=== PATIENT | female | born 1975 | race Caucasian/White ===

== ENCOUNTER → 2021-11-18 | Outpatient (CLI) | payer BC, OTHER ==
--- NOTE | 2021-11-19 13:54 | NM ---
EXAMINATION TYPE: NM thyroid image w uptake DATE OF EXAM: 11/19/2021 COMPARISON: NONE HISTORY: E05.91 THYROTOXICOSIS TECHNIQUE: Thyroid iodine uptake is calculated and images performed after the oral administration of 358 uCi 1-123 Capsule. FINDINGS: There is normal distribution of activity throughout the gland. The 4 hour iodine uptake is calculated at 27.9% (normal range 8-14%). The 24-hour iodine uptake is calculated at 63.2% (normal r rosa 15-35%). Thyroid scintigraphy demonstrates homogeneous distribution radiotracer throughout both thyroid lobes and thyroid isthmus. No evidence for hot or cold nodule. IMPRESSION: Elevated 4 and 24-hour uptake compatible with hypertrapping state.
== END | disposition home or self-care (01) ==
LOC: RADNMMAIN 08:39
PROVIDERS: ATTEND Internal Medicine Endocrinology, Diabetes & Metabolism
DX: E05.91 Thyrotoxicosis, unspecified with thyrotoxic crisis or storm (principal)
CPT/HCPCS: 78014; A9516

== ENCOUNTER → 2023-01-14 | Outpatient (CLI) | payer OTHER ==
--- NOTE | 2023-01-14 13:30 | XR ---
EXAMINATION TYPE: XR cervical spine comp DATE OF EXAM: 01/14/2023 COMPARISON: None HISTORY: 47-year-old female S43.91XD Sprain Right shoulder M54.2 Cervicalgia. TECHNIQUE: 5 views FINDINGS: No predental space widening or prevertebral soft tissue swelling. Straightening of the normal cervica l lordosis. Alignment is maintained. No significant bony neuroforaminal narrowing on either side. Nor mal odontoid view. IMPRESSION: Straightening of the normal cervical lordosis could be positional or due to muscle spasm. Otherwise, no radiographic abnormality seen.
--- NOTE | 2023-01-14 13:33 | XR ---
EXAMINATION TYPE: XR thoracic spine complete DATE OF EXAM: 01/14/2023 CLINICAL HISTORY: pain TECHNIQUE: Frontal, lateral, and swimmer's view of thoracic spine are obtained. COMPARISON: None. FINDINGS: Thoracic spine show satisfactory alignment without evidence of acute fracture or dislocatio n. Vertebral body heights are preserved. Disc spaces are well preserved. Visualized ribs are unrem arkable. IMPRESSION: No acute fracture or dislocation is seen in the thoracic spine. ICD 10 NO FRACTURE, INIT IAL EVALUATION
== END | disposition home or self-care (01) ==
LOC: RADXRMAIN 12:18
PROVIDERS: ATTEND Emergency Medicine
DX: S43.91XD Sprain of unspecified parts of right shoulder girdle, subsequent encounter (principal); M54.2 Cervicalgia; R20.9 Unspecified disturbances of skin sensation; X58.XXXD Exposure to other specified factors, subsequent encounter
CPT/HCPCS: 72050; 72072

== ENCOUNTER → 2023-02-08 | Outpatient (CLI) | payer OTHER ==
--- NOTE | 2023-02-08 14:15 | MR ---
EXAMINATION TYPE: MR cervical spine wo con DATE OF EXAM: 02/08/2023 COMPARISON: Radiograph 01/21/2023 HISTORY: 47-year-old female M54.2, Neck pain, headaches, RUE radiculopathy. TECHNIQUE: Multiplanar, multisequence images of the cervical spine were acquired without contrast. FINDINGS: No craniocervical junction abnormality, predental space widening, or prevertebral soft tissue swellin g. Straightening of the normal cervical lordosis but with preserved alignment. No suspicious bone marrow placement. No large focal disc herniation or significant spinal canal stenosis. There is variable mild intervertebral disc desiccation, particularly at C5-C6 where there is also mil d disc space narrowing and disc bulging. Disc bulge impresses on to the ventral thecal sac minimally narrowing the spinal canal. Mild ligamentum flavum thickening and minimal disc bulge also present at C6-C7 impressing on to the t hecal sac. Some uncovertebral joint and facet spurring at C5-C6 mildly narrows the left neuroforamen. No prevertebral or paravertebral soft tissue pathology. Normal course, caliber, and signal intensity of the cervical spinal cord. IMPRESSION: 1. Mild degenerative disc disease particularly at C5-C6 and C6/C7. Some ligamentum flavum thickening and disc bulge here mildly impresses on 2 the thecal sac but does not contribute to any significant s vane canal stenosis. 2. Some facet and uncovertebral joint arthropathy at C5-C6 mildly narrows the left C5-C6 neuroforamen .
== END | disposition home or self-care (01) ==
LOC: RADMRIMAIN 13:00
PROVIDERS: ATTEND Orthopaedic Surgery
DX: M50.122 Cervical disc disorder at C5-C6 level with radiculopathy (principal); M47.22 Other spondylosis with radiculopathy, cervical region
CPT/HCPCS: 72141

== ENCOUNTER → 2023-04-20 | Outpatient (CLI) | payer BC, OTHER ==
[2023-04-20 12:58] VITALS: BP 126/90; PULSE 78; RESP 15; TEMP 97.3
--- NOTE | 2023-04-20 14:35 | P.PAINPG ---
PQRS Measure Charge Sheet Comment: HISTORY OF PRESENT ILLNESS: A 48 yr old female w case worker at [facility] as a referral from [facility] presents today w severe and chronic neck pain x 6 mo secondary to DDD, spondylosis and facet arthropathy without myelopathy for evaluation. Pt states pain level is provoked at 7 /10 in intensity, constant, localized in the R lower cervical spine, predominantly axial, achy in character w occasional shooting pain towards the RUE and fingers. Pain is provoked by rotation. Pain is alleviated by PT x 4 wks which ended in Jan 2023, heat, medicatoins (Tyl, Ibu), repositioning and rest. Cervical disability score at 22. PMH: OA, MDD PSH: Tubal Ligation (2002) SH: Hx of tobacco use, Rare ETOH use, No illicit drug use FH: Fa- Asthma All: See list Meds: See list REVIEW OF ORGAN SYSTEMS: CONSTITUTIONAL: No fevers or chills. No recent weight loss. NEUROLOGICAL: + numbness and tingling along the distal extremities. No seizure disorders or headaches. MUSCULOSKELETAL: + pain PSYCHIATRIC: Denies current depression or suicidal thoughts. Physical Examinations : Constitutional : Cooperative , not in acute distress . Neurologic : Cranial nerve II to XII intact. No focal neurological deficits. Psychiatric : alert & oriented x 3. Matching mood & appropriate affect. Judgment & insight intact. Musculoskeletal : Cervical Spine Motor strength in the deltoid and biceps: Normal right side. Normal Left side Motor strength biceps and the wrist extensors: Normal right side . Normal left side Motor strength in the triceps muscle: Normal right side. Normal left side Deep tendon reflexes: Normal at the biceps. Normal at Brachioradialis. Normal at triceps Vertebral body tenderness to deep palpation over C6 Cervical facet loading test: positive bilaterally Spurling test: positive R> L C6-C7 Neck distraction test: positive bilaterally Brooke sign: positive bilaterally Lumbar spine Motor strength lower extremities ,thigh and legs 5/5 Right side , 5/5 Left side Deep tendon reflexes : Normal Knee Jerk. Normal Ankle Jerk Vertebral body tenderness over Araiza Test positive Lumbar facet Loading Test: positive Right / positive Left Range of motion of the lumbar spine Flexion 30 degrees, extension 10 degrees Straight Leg Raise test: Left/ Right positive at degrees Bernice test: positive right / positive left. Severe tenderness over the Sacroiliac joint on the Right / Left sides Gaenslen test: positive bilaterally Seated flexion test: positive bilaterally. Sacral spine : Severe tenderness over the Sacroiliac joint: right side / left side Range of motion: Flexion of the lumbar spine <60 degrees Range of motion: Extension of the lumbar spine <20 degrees Gaenslen's Test positive Bernice test: positive right side / left side Thigh Thrust Test Sacral Thrust Test Imaging: MRI noncontrast of the cervical spine from 02/08/23 reviewed Assessment/ Plan : Cervical DDD Recommendation of REGAN C6-C7 #1. May need a series of injections for optimal pain relief. Risks, benefits of procedure discussed and patient verbalized understanding. Admits to anti- coagulant use or medical history of diabetes. Protocol for discontinuation/ continuation of medications greer procedure discussed. All questions answered. I have spent greater than 30 minutes on patient care today. Dr Olmos was available by phone for the evaluation of this patient. The time was used to review the medical records including relevant urine studies and Prescription history (MAPs), review of the available imaging, evaluation and examination of the patient, coordination of care with the medical staff and if applicable referring physicians, as well as creation of the medical record Controlled Substance Measures - Controlled Substance Measures Is patient prescribed a controlled substance at discharge?: No
== END ==
LOC: PNWHC3 11:52
PROVIDERS: ATTEND Specialist
DX: M50.123 Cervical disc disorder at C6-C7 level with radiculopathy (principal); M47.22 Other spondylosis with radiculopathy, cervical region; R53.1 Weakness; M19.90 Unspecified osteoarthritis, unspecified site; F32.9 Major depressive disorder, single episode, unspecified; Z72.0 Tobacco use
CPT/HCPCS: 99211

== ENCOUNTER 2023-05-03 12:06 | Day surgery (SDC) | payer BC, OTHER ==
[~2023-05-03 12:06] MED LIST: LACTATED RINGERS 1,000 ML IV SCH
[2023-05-03 13:08] VITALS: RESP 16; TEMP 97.7
[2023-05-03] MEDS ORDERED: IOPAMIDOL M200 10 ML VIAL ONE (13:18)
[2023-05-03] MEDS ORDERED: DEXAMETHASONE SOD PHOSPHATE 10 MG/ML 1 ML VIAL ONE (13:18)
--- NOTE | 2023-05-03 13:26 | P.PCN ---
Date of Procedure: 05/03/23 Procedure(s) Performed: . PROCEDURE 1. Cervical epidural steroid injection under fluoroscopic guidance, C6-7 (fluoroscopy images available in the radiology department ) 2. Cervical epidurogram. PREOPERATIVE DIAGNOSIS: 1- Cervical Degenerative Disc Diseases 2- Cervical radiculopathy., 3-cervical spondylosis with cervical Facet arthropathy without myelopathy. POSTOPERATIVE DIAGNOSIS: : 1- Cervical Degenerative Disc Diseases , 2- Cervical radiculopathy. 3-,cervical spondylosis with cervical Facet arthropathy without myelopathy. ANESTHESIA: Local anesthesia with lidocaine 1% 3 ml only EBL 0 PROCEDURE INDICATION: The patient with neck pain and radiculitis unresponsive to conservative treatment consents for procedure. PROCEDURE DESCRIPTION / TECHNIQUE: The patient was seen and identified in the preoperative area. Risks, benefits, complications, including but not limited to infections ,bleeding , allergic reactions to the medications ,and not complete pain releife, and alternatives were discussed with the patient, the patient agreed to proceed with the procedure and signed the consent. Patient was taken to the OR and time out was completed. The patient was placed in the prone position on the procedure table. A pillow was placed under the patients chest to increase the cervical interlaminar space. The cervical area was prepped and draped in the usual sterile fashion. Vital signs were closely monitored during the procedure. Using anterior-posterior fluoroscopy, the C6-7 ( R paramedial ) interlaminar space was identified and the skin over this site was marked and then infiltrated with 1% lidocaine subcutaneously. Subsequently, a 20-gauge 3-1/2-inch Tuohy epidural needle was inserted and advanced toward the epidural space by means of the ``hanging-drop technique and guided by AP and lateral fluoroscopy. The correct needle position in the epidural space was verified with the injection of 2 mL of the water soluble contrast dye [id number] and observing an excellent epidurogram with the epidural spread of the dye, after negative aspiration for blood and CSF and in the absence of paresthesias. then, mixture containing 20 mg Dexamethasone and 2 ml of preservative-free normal saline injected and a washout of epidurogram was seen. Needle was withdrawn intact, skin was cleansed, and bandages were applied. Complications= none. Disposition= patient was placed in supine position and transferred to the recovery room area in stable condition and there was no evidence of upper or lower extremity motor or sensory deficit after the procedure patient was discharged from recovery room after discharge criteria met and home discharge instructions was given by the staff and patient will follow with the pain clinic in 2-4 weeks
[2023-05-03] MEDS ORDERED: IV FLUID CONTINUATION 1,000 ML IV ONE (13:36)
--- NOTE | 2023-05-03 13:57 | FL ---
EXAMINATION TYPE: FL guided pain mgmt statistic DATE OF EXAM: 05/03/2023 HISTORY: REGAN 4 SEC FLUORO, .[id number] mGym2
[2023-05-03 14:05] VITALS: BP 116/78; PULSE 75
== END 2023-05-03 14:10 | disposition home or self-care (01) ==
LOC: ORPAIN 12:06
PROVIDERS: ATTEND Specialist
DX: M50.10 Cervical disc disorder with radiculopathy, unspecified cervical region (principal); M47.22 Other spondylosis with radiculopathy, cervical region
CPT/HCPCS: 62321; J1100; Q9966

== ENCOUNTER → 2023-06-02 | Outpatient (CLI) | payer BC, OTHER ==
--- NOTE | 2023-06-02 14:21 | P.PAINPG ---
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 Pt states she experienced 80 % pain relief x 2 wks s/p procedure. Pt states pain level is provoked at 7 /10 in intensity, constant, localized in the R lower cervical spine, predominantly axial, achy in character w occasional shooting pain towards the RUE and fingers. Pain is provoked by rotation. Pain is alleviated by PT x 4 wks which ended in Jan 2023, heat, medications, repositioning and rest. Cervical disability score at 21. Interventional procedures include REGAN C6-C7 x1 Medications include Tyl, Ibu REVIEW OF ORGAN SYSTEMS: CONSTITUTIONAL: No fevers or chills. No recent weight loss. NEUROLOGICAL: + numbness and tingling along the distal extremities. No seizure disorders or headaches. MUSCULOSKELETAL: + pain PSYCHIATRIC: Denies current depression or suicidal thoughts. Physical Examinations : Constitutional : Cooperative , not in acute distress . Neurologic : Cranial nerve II to XII intact. No focal neurological deficits. Psychiatric : alert & oriented x 3. Matching mood & appropriate affect. Judgment & insight intact. Musculoskeletal : Cervical Spine Motor strength in the deltoid and biceps: Normal right side. Normal Left side Motor strength biceps and the wrist extensors: Normal right side . Normal left side Motor strength in the triceps muscle: Normal right side. Normal left side Deep tendon reflexes: Normal at the biceps. Normal at Brachioradialis. Normal at triceps Vertebral body tenderness to deep palpation over C6 Cervical facet loading test: positive bilaterally Spurling test: positive R C6-C7 Neck distraction test: positive bilaterally Brooke sign: positive bilaterally Lumbar spine Motor strength lower extremities ,thigh and legs 5/5 Right side , 5/5 Left side Deep tendon reflexes : Normal Knee Jerk. Normal Ankle Jerk Vertebral body tenderness over Araiza Test positive Lumbar facet Loading Test: positive Right / positive Left Range of motion of the lumbar spine Flexion 30 degrees, extension 10 degrees Straight Leg Raise test: Left/ Right positive at degrees Bernice test: positive right / positive left. Severe tenderness over the Sacroiliac joint on the Right / Left sides Gaenslen test: positive bilaterally Seated flexion test: positive leah aterally. Sacral spine : Severe tenderness over the Sacroiliac joint: right side / left side Range of motion: Flexion of the lumbar spine <60 degrees Range of motion: Extension of the lumbar spine <20 degrees Gaenslen's Test positive Bernice test: positive right side / left side Thigh Thrust Test Sacral Thrust Test Imaging: MRI noncontrast of the cervical spine from 02/08/23 reviewed Assessment/ Plan : Cervical DDD Recommendation of R paramedian SANTOSH C6-C7 #2. May need a series of injections for optimal pain relief. Risks, benefits of procedure discussed and patient verbalized understanding. Admits to anti- coagulant use or medical history of diabetes. Protocol for discontinuation/ continuation of medications greer procedure discussed. All questions answered. I have spent greater than 30 minutes on patient care today. Dr Olmos was available by phone for the evaluation of this patient. The time was used to review the medical records including relevant urine studies and Prescription history (MAPs), review of the available imaging, evaluation and examination of the patient, coordination of care with the medical staff and if applicable referring physicians, as well as creation of the medical record PQRS Narrative: Hx Alcohol Use (MH) No Home Medications: Ambulatory Orders Acetaminophen Tab [Tylenol] 650 mg PO Q6H PRN 04/29/23 Ibuprofen [Motrin Ib] 400 mg PO Q6H PRN 04/29/23 traMADol HCL 50 mg PO Q6H PRN 3 Days #12 tab 06/02/23 Controlled Substance Measures - Controlled Substance Measures Is patient prescribed a controlled substance at discharge?: Yes When asked, does pt state using other controlled substances?: No If prescribed controlled substance>3 days was MAPS reviewed?: Prescribed <3 Days
[2023-06-02 14:25] VITALS: BP 135/85; PULSE 90; RESP 16; TEMP 98.6
== END ==
LOC: PNWHC3 13:47
PROVIDERS: ATTEND Specialist
DX: M50.323 Other cervical disc degeneration at C6-C7 level (principal)
CPT/HCPCS: 99211

== ENCOUNTER 2023-06-30 13:13 | Day surgery (SDC) | payer OTHER ==
[2023-06-30 14:15] VITALS: TEMP 98.3
[2023-06-30] MEDS ORDERED: DEXAMETHASONE SOD PHOSPHATE 10 MG/ML 1 ML VIAL ONE (14:37)
[2023-06-30] MEDS ORDERED: IOPAMIDOL M200 10 ML VIAL ONE (14:37)
--- NOTE | 2023-06-30 14:43 | P.PCN ---
Date of Procedure: 06/30/23 Procedure(s) Performed: PROCEDURE 1. Cervical epidural steroid injection under fluoroscopic guidance, C6-7 (fluoroscopy images available in the radiology department ) 2. Cervical epidurogram. PREOPERATIVE DIAGNOSIS: 1- Cervical Degenerative Disc Diseases 2- Cervical radiculopathy., 3-cervical spondylosis with cervical Facet arthropathy without myelopathy. POSTOPERATIVE DIAGNOSIS: : 1- Cervical Degenerative Disc Diseases , 2- Cervical radiculopathy. 3-,cervical spondylosis with cervical Facet arthropathy without myelopathy. ANESTHESIA: Local anesthesia with lidocaine 1% 3 ml only EBL 0 PROCEDURE INDICATION: The patient with neck pain and radiculitis unresponsive to conservative treatment consents for procedure. PROCEDURE DESCRIPTION / TECHNIQUE: The patient was seen and identified in the preoperative area. Risks, benefits, complications, including but not limited to infections ,bleeding , allergic reactions to the medications ,and not complete pain releife, and alternatives were discussed with the patient, the patient agreed to proceed with the procedure and signed the consent. Patient was taken to the OR and time out was completed. The patient was placed in the prone position on the procedure table. A pillow was placed under the patients chest to increase the cervical interlaminar space. The cervical area was prepped and draped in the usual sterile fashion. Vital signs were closely monitored during the procedure. Using anterior-posterior fluoroscopy, the C6-7 ( R paramedial ) interlaminar space was identified and the skin over this site was marked and then infiltrated with 1% lidocaine subcutaneously. Subsequently, a 20-gauge 3-1/2-inch Tuohy epidural needle was inserted and advanced toward the epidural space by means of the ``hanging-drop technique and guided by AP and lateral fluoroscopy. The correct needle position in the epidural space was verified with the injection of 2 mL of the water soluble contrast dye [id number]-200 and observing an excellent epidurogram with the epidural spread of the dye, after negative aspiration for blood and CSF and in the absence of paresthesias. then, mixture containing 20 mg Dexamethasone and 2 ml of preservative-free normal saline injected and a washout of epidurogram was seen. Needle was withdrawn intact, skin was cleansed, and bandages were applied. Complications= none. Disposition= patient was placed in supine position and transferred to the recovery room area in stable condition and there was no evidence of upper or lower extremity motor or sensory deficit after the procedure patient was discharged from recovery room after discharge criteria met and home discharge instructions was given by the staff and patient will follow with the pain clinic in 2-4 weeks
[2023-06-30 14:53] VITALS: RESP 18
[2023-06-30 15:30] VITALS: BP 124/72; PULSE 74
--- NOTE | 2023-06-30 20:22 | FL ---
Fluoroscopy INDICATION: Pain FINDINGS: Fluoroscopy time: 3.2 seconds. Total dose area product (DAP) in uGy*m?, mGy*cm? (or similar): 0.47515 Images obtained: 3. IMPRESSION: 1. Documentation of fluoroscopy.
== END 2023-06-30 15:15 | disposition home or self-care (01) ==
LOC: ORPAIN 13:13
PROVIDERS: ATTEND Specialist
DX: M50.123 Cervical disc disorder at C6-C7 level with radiculopathy (principal); M47.22 Other spondylosis with radiculopathy, cervical region
CPT/HCPCS: 62321; J1100; Q9966

== ENCOUNTER → 2023-10-11 | Outpatient (CLI) | payer OTHER ==
[2023-10-11 19:26] LABS: INR 0.96 sec (0.93-1.11); Prothrombin Time 10.4 sec (9.9-11.9)
[2023-10-11 20:40] LABS: ALT 20 U/L (8-44); AST 20 U/L (13-35); Albumin 4.8 g/dL (3.8-4.9); Albumin/Globulin Ratio 2.09 Ratio (1.60-3.17); Alkaline Phosphatase 61 U/L (41-126); BUN/Creat Ratio 10.67 Ratio (12.00-20.00); Blood Urea Nitrogen 9.6 mg/dL (9.0-27.0); Calcium 9.8 mg/dL (8.7-10.3); Carbon Dioxide 26.8 mmol/L (21.6-31.8); Chloride 103 mmol/L (96-109); Globulin 2.3 g/dL (1.6-3.3); Glucose 82 mg/dL (70-110); Potassium 4.1 mmol/L (3.5-5.5); Sodium 140 mmol/L (135-145); Total Bilirubin 0.8 mg/dL (0.3-1.2); Total Protein 7.1 g/dL (6.2-8.2)
[2023-10-11 21:10] LABS: HGB 12.3 g/dL (12.0-15.0); MCH 30.4 pg (27.0-32.0); MCHC 32.4 g/dL (32.0-37.0); MCV 94.1 FL (80.0-97.0); Mean Platelet Volume 10.2 FL (9.5-12.2); NRBC Per 100 WBC 0 X 10*3/uL (0.00-0.01); Platelet Count 234 X 10*3/uL (140-440); RBC 4.04 X 10*6/uL (4.10-5.20); WBC 4.49 X 10*3/uL (4.50-10.00)
== END | disposition home or self-care (01) ==
LOC: LABWHC1 13:54
PROVIDERS: ATTEND Orthopaedic Surgery
DX: M50.10 Cervical disc disorder with radiculopathy, unspecified cervical region (principal); R94.31 Abnormal electrocardiogram [ECG] [EKG]
CPT/HCPCS: 36415; 80053; 82306; 85027; 85610; 93005

== ENCOUNTER → 2023-10-26 | Outpatient (CLI) | payer OTHER | END | disposition home or self-care (01) | LOC: LABPAT 14:22 | PROVIDERS: ATTEND Orthopaedic Surgery | DX: Z01.812 Encounter for preprocedural laboratory examination (principal); M50.10 Cervical disc disorder with radiculopathy, unspecified cervical region; Z22.322 Carrier or suspected carrier of Methicillin resistant Staphylococcus aureus | CPT/HCPCS: 86850; 86900; 86901; 87070 ==

== ENCOUNTER 2023-11-01 09:39 | Day surgery (SDC) | payer OTHER ==
--- NOTE | 2023-10-31 17:22 | P.HPOR ---
History of Present Illness H&P Date: 10/26/23 .D:Date: 10/26/23 : 01:46pm .T:Title: [facility] [place] Age: 48 year Height: 5'6" Weight: 118 lbs BMI: 19.05 kg/m2 Occupation: Factory VAS: 6 IMPRESSION: It was my pleasure to have seen and examined Navya. I reviewed the patient's clinical syndrome, physical findings, and imaging studies during the appointment today. It is my impression that the patient has a diagnosis of. 1. C5-6 herniated nucleus pulposus 2. Bilateral upper extremity radiculopathy 3. Bilateral upper extremity weakness 4. Cervicalgia Spine Surgery Risk Review Ms. Monroy is presenting for evaluation of neck and bilateral upper extremity pain, bilateral upper extremity numbness, tingling, and weakness. It was my pleasure to have seen and examined Ms. Monroy. In our visit today we have had a chance to go over subjective complaints, physical examination findings and treatments including the natural course history without intervention and various interventional options. The patients imaging demonstrates: XRay Cervical multiview (Lateral, Flexion, Extension, AP, Oblique) 6 views taken at [facility] [place] on 03/02/23 of Cervical Spine: - Re-reviewed with the patient today. Mild spondylitic and degenerative changes with straightening of the normal lordosis. Vertebral body heights are preserved. Diminished disc height at C5- C6, no foraminal stenosis. No acute osseous abnormalities. MRI scancompleted [facility] from02/08/2023 of Cervical Spine: - Re-reviewed with the patient today. 1. Mild degenerative disc disease particularly at C5-C6 and C6/C7. Some ligamentum flavum thickening and disc bulge here mildly impresses on 2 the thecal sac but does not contribute to any significant spinal canal stenosis. 2. Some facet and uncovertebral joint arthropathy at C5-C6 mildly narrows the left C5-C6 neuroforamen. On physical exam, Ms. Monroy demonstrates: Ongoing posterior neck pain that radiates down into the bilateral lower extremities. The patient's pain has been ongoing since 12/07/2022 after a work related injury occured. She denies any significant neck or arm pain prior to the work injury. She notes her arm pain is associated with numbness and tingling bilaterally. She notes progressive right upper extremity weakness. She notes decreased hand dexterity bilaterally. She states her current symptoms worsen after all activity, which makes it very difficult for her to complete many of her regular activities of daily living. I have explained to the patient that as their condition progresses it will cause further neurological deficits and eventual paralysis. Based on the patients imaging, physical exam, and the rapid progression and disabling nature of their symptoms, at this time I recommend surgery in the form of a: C5-6 total disc replacement. I discussed the risk and benefits of this procedure at length with Ms. Monroy. The patient agreed to considered pursuing the procedure abovementioned. Prior to surgery, she should follow up with her PCP (Cardio, ID, IM etc) for clearance. Questions were invited and answered, and the patient wishes to proceed as outlined below. Currently, I am recommendin.C5-6 total disc replacement 2.Review of surgical risks and benefits as well as an educational packet on the proposed surgical procedure. Risks: All surgical procedures come with inherent risks, including those related to positioning, anesthesia, intraoperative findings, and postoperative complications. It is important to understand that surgery does not come with any guarantee of a successful outcome as complications and adverse events are always possible. The patient was given a handout in office today discussing the surgical procedure and risks associated with the intervention, both of which were discussed with the patient. These risks include but are not limited to the following: * Experiencing same, different or even worse symptoms in back, neck, arms, or legs compared to before surgery. Requiring further surgery or other forms of treatment presently or at some time in the future at same or other levels of the intended spine surgery. On an extreme but fortunately relatively rare basis severe complication such as blindness, stroke, heart attack, temporary and/or permanent nerve injury, paralysis, coma, or may occur, sometimes without known explanation. Surgical complications may include but are not limited to risk of infection, fluid accumulation in the surgical dissection site, including a seroma or hematoma, that requires additional surgery, wound drainage, bleeding, new numbness or weakness, vision changes/loss, spinal fluid leakage, non-healing and/or infected incision, headaches, difficulty or inability to swallow, hoarseness, hemopneumothorax, pneumothorax, impotence, retrograde ejaculation, vaginal dryness; injury to nerves, spinal cord, blood vessels, lymphatics or other vital organs (i.e., bowel injury, injury to the great vessels); heterotopic bone formation; complications related to the hardware such as screws, rods, cages including misplaced hardware, device failure, instrumentation at the wrong spine level, hardware fracture/breakage, or hardware loosening; vertebral failure of the spinal column above or below the newly placed hardware; retained surgical instrumentations or devices and the need for further surgery. * Medical risks of the planned spine surgery include but are not limited to generalized Infections to the whole body or local areas outside of the surgical site (sepsis), heart attack, bleeding, anaphylaxis, meningitis, seizure, epilepsy, hearing loss, burn grant, laceration of the head or other areas of the body, bruising, hypersensitivity of the skin, bladder over distension; allergic reaction; shoulder injury related to positioning; fat, blood and air clots to other areas of the body like heart, lungs, brain; failure of internal organs such as lungs, kidneys, liver and excessive bleeding. If blood transfusions are necessary, note that transfusions may cause intolerance reactions such as anaphylaxis or other complex reactions. Despite best efforts, the results of spine surgery might not heal in terms of bone, soft tissues such as skin, fascia, ligaments, and joints. Additionally, in order to achieve best possible results, spine surgery may be carried out beyond the initially planned levels and involve decompression, fusion including insertion of hardware at levels other than the original intended area of surgical interest change some portions of the procedure in order to ensure the best possible outcomes. With spine surgery and spinal fusion, there are different off label uses of instrumentation (devices, implants and hardware) as well as biological substances (bone morphogenic proteins, demineralized bone matrix) as well as using extra bone from allograft sources (i.e. cadaver bone) or autograft (iliac crest bone, ribs, or the spine itself). The patient has been given information about these practices and their inherent risks and benefits. [facility] is an educational center that serves as a training facility for neurosurgical and orthopedic [employer] and Nursing students. Physician assistants are medically trained surgical providers who function in the outpatient, inpatient, and operating room setting under the direct supervision of the attending surgeon. [facility] has multiple operating rooms with single and overlapping rooms running daily. They currently function under the required guidelines as produced by the [facility] Finance Committee with regards to the overlapping rooms and will continue to comply with changes to this policy as they occur. The requirements include and are complied with as follows: (1) the critical portions of the overlapping rooms will not occur at the same time, (2) the attending physician will be physically present during the critical portions of the procedure and immediately available during the entire case, and (3) a back-up attending is designated should the primary attending not be immediately available. The patient has had a chance to review all the listed information, has been given print outs detailing this information, and has had all his/her questions answered to their satisfaction. It was my pleasure to have seen and examined Ms. Monroy. In our visit today we have had a chance to go over my understanding of our patient's current cond ition, the natural course history without intervention and various interventional options. Questions were invited and answered, and the patient wishes to proceed as outlined above. I have seen and examined the patient for 25 minutes and we have spent more than 50% of the time in repeat and detailed counseling about the patient's condition, its natural course history with out and as much as can be predicted with surgery and re-review of various surgical treatment options. In conclusion, Ms. Monroy requested we proceed with the above suggested surgery and are willing to accept risks and limitations of the suggested surgery as nature of the disease process and our best attempts at treatment for the condition. Thank you again for allowing us to be part of your patient's care. Please don't hesitate to contact me if you have any further questions. Signed and authenticated by: [employer] P:\\\\ppart\\\\Files\\\\[id number]\\\\LEV [id number]\\\\[id number]\\\\[id number]\\\\[id number]\\\\[id number]\\\\[id number] \\d Jona Ow[facility] [address], Dominick [address] [place] [id number] FOLLOW UP: Post Procedure PATIENT EDUCATION: Medications Reviewed: YES In our visit today Ms. Monroy and I have had a chance to go over my understanding of the patient's current condition, the natural course history without intervention and various interventional options. Questions were invited and answered, and the patient wishes to proceed as outlined above. I will be sure to keep you updated after Ms. Monroy returns here for further follow-up. Thank you again for your referral. Please do not hesitate to contact me if you have any further questions. Signed and authenticated by: Jona Galvez [facility] [address] [address] . This message is confidential, intended only for the named recipient(s) and may contain information that is privileged or exempt from disclosure under applicable law. If you are not the intended recipient(s), you are notified that the dissemination, distribution or copying of this information is prohibited. If you received this message in error, please notify the sender then delete this message. Past Medical History Additional Past Medical History / Comment(s): kidney stones, neck/shoulder/Rt. arm pain from work injury History of Any Multi-Drug Resistant Organisms: None Reported Past Surgical History: Tubal Ligation Additional Past Surgical History / Comment(s): lithotripsy Past Anesthesia/Blood Transfusion Reactions: No Reported Reaction Smoking Status: Former smoker - Past Family History Father Family Medical History: Asthma Medications and Allergies Home Medications Medication Instructions Recorded Confirmed Type Acetaminophen Tab [Tylenol] 650 mg PO Q6H PRN 04/29/23 10/28/23 History Ibuprofen [Motrin Ib] 400 mg PO Q6H PRN 04/29/23 10/28/23 History Gabapentin [Neurontin] 300 mg PO TID 10/28/23 10/28/23 History Allergies Allergy/AdvReac Type Severity Reaction Status Date / Time No Known Allergies Allergy Verified 10/28/23 09:34 Physical Examination Osteopathic Statement: *. No significant issues noted on an osteopathic structural exam other than those noted in the History and Physical/Consult. Assessment and Plan (1) Herniated nucleus pulposus, C5-6 Status: Acute Code(s): M50.222 - OTHER CERVICAL DISC DISPLACEMENT AT C5-C6 LEVEL SNOMED Code(s): 32375400 (2) Cervical stenosis of spine Status: Acute Code(s): M48.02 - SPINAL STENOSIS, CERVICAL REGION SNOMED Code(s): 42654839 (3) Degenerative cervical disc Status: Acute Code(s): M50.30 - OTHER CERVICAL DISC DEGENERATION, UNSP CERVICAL REGION SNOMED Code(s): 30688142 (4) Radiculopathy affecting upper extremity Status: Acute Code(s): M54.10 - RADICULOPATHY, SITE UNSPECIFIED SNOMED Code(s): 44719390
[~2023-11-01 09:39] MED LIST changes: -LACTATED RINGERS 1,000 ML IV SCH; +TRANEXAMIC 1,000 MG/100ML-NACL 1,000 MG in SALINE 1 100ML.BAG IVPB PRN
[2023-11-01 10:11] VITALS: TEMP 97.6
[2023-11-01] MEDS: IV FLUID CONTINUATION 1,000 ML IV ONE ×4 (10:11→10:39)
[2023-11-01] MEDS: LACTATED RINGERS 1,000 ML IV SCH (10:35)
[2023-11-01] MEDS: GABAPENTIN 300 MG CAP PO PRN (10:41)
[2023-11-01] MEDS: ACETAMINOPHEN TAB 500 MG TAB PO PRN (10:42)
[2023-11-01] MEDS: ONDANSETRON 4 MG/2 ML VIAL IVP PRN (10:42)
[2023-11-01] MEDS: MIDAZOLAM 2 MG/2 ML VIAL IV PRN (10:50)
[2023-11-01] MEDS ORDERED: KETAMINE HCL IN 0.9 % NACL 50 MG/5 ML SYRINGE ONE (11:10)
[2023-11-01] MEDS ORDERED: GLYCOPYRROLATE 0.2 MG/ML 2 ML VIAL ONE (11:10)
[2023-11-01] MEDS ORDERED: ROCURONIUM 10 MG/ML (5 ML VIAL) IV ONE (11:10)
[2023-11-01] MEDS ORDERED: TRANEXAMIC 1,000 MG/100ML-NACL PREMIX BAG ONE (11:10)
[2023-11-01] MEDS ORDERED: MIDAZOLAM 2 MG/2 ML VIAL ONE (11:10)
[2023-11-01] MEDS ORDERED: SUCCINYLCHOLINE CHLORIDE 200 MG/10 ML VIAL IV ONE (11:10)
[2023-11-01] MEDS ORDERED: NEOSTIGMINE 1 MG/ML 10 ML VIAL ONE (11:10)
[2023-11-01] MEDS ORDERED: fentaNYL (PF) 50 MCG/ML 2 ML AMP ONE (11:10)
[2023-11-01] MEDS ORDERED: LIDOCAINE 1% INJ 10MG/ML (20 ML MDV) ONE (11:10)
[2023-11-01] MEDS ORDERED: PROPOFOL 10 MG/ML 20 ML VIAL IV ONE (11:10)
[2023-11-01] MEDS: THROMBIN (BOVINE) 5,000 UNIT VIAL TOPICAL ONE (12:50)
--- NOTE | 2023-11-01 13:04 | P.OP ---
Date of Procedure: 11/01/23 Preoperative Diagnosis: Current Active Problems Herniated nucleus pulposus, C5-6 (Acute) Cervical stenosis of spine (Acute) Degenerative cervical disc (Acute) Radiculopathy affecting upper extremity (Acute) Postoperative Diagnosis: Current Active Problems Herniated nucleus pulposus, C5-6 (Acute) Cervical stenosis of spine (Acute) Degenerative cervical disc (Acute) Radiculopathy affecting upper extremity (Acute) Procedure(s) Performed: C5-6 anterior cervical disc arthroplasty use of IONM Use of IO microscope Implants: -Pro Disc C, Vivo 6mm Large Anesthesia: GETA Surgeon: Jona Waters Dye Tub Tender #1: Perla Garcia (Was present and assisted with all aspects of the case from position to dressing placement) Estimated Blood Loss (ml): 25 IV fluids (ml): 900 Urine output (ml): 0 Pathology: none sent Condition: stable Disposition: PACU Indications for Procedure: Ms. Monroy is presenting for evaluation of neck and bilateral upper extremity pain, bilateral upper extremity numbness, tingling, and weakness. It was my pleasure to have seen and examined Ms. Monroy. In our visit today we have had a chance to go over subjective complaints, physical examination findings and treatments including the natural course history without intervention and various interventional options. The patients imaging demonstrates: XRay Cervical multiview (Lateral, Flexion, Extension, AP, Oblique) 6 views taken at [facility] on 03/02/23 of Cervical Spine: - Re-reviewed with the patient today. Mild spondylitic and degenerative changes with straightening of the normal lordosis. Vertebral body heights are preserved. Diminished disc height at C5- C6, no foraminal stenosis. No acute osseous abnormalities. MRI scancompleted [facility] from02/08/2023 of Cervical Spine: - Re-reviewed with the patient today. 1. Mild degenerative disc disease particularly at C5-C6 and C6/C7. Some ligamentum flavum thickening and disc bulge here mildly impresses on 2 the thecal sac but does not contribute to any significant spinal canal stenosis. 2. Some facet and uncovertebral joint arthropathy at C5-C6 mildly narrows the left C5-C6 neuroforamen. On physical exam, Ms. Monroy demonstrates: Ongoing posterior neck pain that radiates down into the bilateral lower extremities. The patient's pain has been ongoing since 12/07/2022 after a work related injury occured. She denies any significant neck or arm pain prior to the work injury. She notes her arm pain is associated with numbness and tingling bilaterally. She notes progressive right upper extremity weakness. She notes decreased hand dexterity bilaterally. She states her current symptoms worsen after all activity, which makes it very difficult for her to complete many of her regular activities of daily living. I have explained to the patient that as their condition progresses it will cause further neurological deficits and eventual paralysis. Based on the patients imaging, physical exam, and the rapid progression and disabling nature of their symptoms, at this time I recommend surgery in the form of a: C5-6 total disc replacement. I discussed the risk and benefits of this procedure at length with Ms. Monroy. The patient agreed to considered pursuing the procedure abovementioned. Prior to surgery, she should follow up with her PCP (Cardio, ID, IM etc) for clearance. Questions were invited and answered, and the patient wishes to proceed as outlined below. Currently, I am recommendin.C5-6 total disc replacement Description of Procedure: C5-6 TDR The patient was seen and examined in the preoperative area. All preoperative protocols were followed. Informed consent was obtained, risks and benefits of the procedure were discussed at length. Risks including bleeding infection damage to the surrounding tissue and risk of reoperation were discussed with the patient. Risk of anesthesia up to and including was discussed with the patient. These are outlined in the risk review. They were willing to accept these risks and all the risks of surgery. The patient was given a weight-based dose of antibiotics in the form of 2 g Ancef. The patient was seen and evaluated by the anesthesia team who deemed them fit for surgery. The site was marked, the patient was willing to proceed with the procedure. The patient was transferred to the operative suite by the Department of anesthesia. They were then drifted off to sleep by the department anesthesia and GETA was performed. The patient tolerated this well. Reyes catheter was placed by nursing staff, a-traumatically. Once confirmation of lines and ventilation the patient was transferred to a Supine Angelo table very carefully. All bony prominences including wrists, elbows, axilla, chest, hips, and thighs, and feet were padded very well. Special attention was paid to the genitalia, and these were padded accordingly. SCDs were placed on bilateral lower extremities and were connected. Arms were well padded and placed at their side thumbs up. Shoulder roll was placed and shoulders were gently taped to the table. Once in position, again we confirmed good ventilation capabilities and that lines were running appropriately. The patients Cervical spine was then exposed. 1010s were placed outlining the incision site. Standard alcohol was used to clean the incision site and allowed to dry. C-arm was used to bio-avery the patient and confirm level for incision which was marked with a skin marker. Operative briefing was performed with all teams and everyone in agreement to proceed. The patient was then prepped and draped in a normal sterile fashion. Timeout was then performed, and all parties agreed with the procedure to be performed. Transverse skin incision was then made on the right side of the patient's neck 3 cm and dissection taken down to the platysma which was split transversely. Sub platysma flap was made, and interval identified between SCM and medial structures. Omohyoid was visualized and protected. Blunt dissection taken down to the anterior cervical fascia which was identified. Blunt probe was then placed and lateral image taken which confirmed levels for operation. These levels were then marked with a bovi. Subperiosteal dissection of the longissimus muscles were then done over these levels identifying uncovertebral joints bilaterally. Retractor was then placed deep to these muscles and held in place with a bed arm. [place] pins were placed into C5 and C6 and gentle parallel distraction taken out over the levels. Nina rongeur used to remove disc material. Operating microscope brought in for visualization. Complete discectomy performed at this level with curette, rongeur and pituitary. High speed nadira used to remove osteophytes anteriorly and posteriorly until PLL was identified. 6-0 up curette then used to identify the canal and resect the PLL. 2-0 and 3-0 Kerrison used then to remove PLL and disc herniation and performed b/l foraminotomies. Once good decompression was accomplished, meticulous hemostasis was performed. Sizers were then placed under lateral fluoroscopy until the desired height and alignment. A 6 trial was then placed and secured. AP and lateral image confirmed central placement. Trial was then removed and gentle distraction placed again. Further clean up of the endplates done as well as foramen and decompression. Disc space was irrigated thoroughly. Final implant was then placed under lateral image and was placed optimally on AP and lateral imaging. Once in place the implant was tested and was secured. Motors run before and after implant placement were stable. The wound bed was irrigated. Distraction pins removed and bone wax placed in their void. Bone wax placed on any bleeding bony surfaces. Surgicel then placed deep in the wound and retractors removed after inspection without injury. Final AP and lateral images confirmed good placement of implant with good height and alignment sabianism. The wound was then irrigated copiously with NSS. Surgicel placed deep in the wound. Layered closure then performed with 3-0 Vicryl in the platysma and subQ tissue. 4-0 Strata fix in the subcuticular tissue. The wound was then cleaned, and dried and skin glue placed. Once glue dried an Opifoam was placed. The patient was then transferred back to their hospital bed a-traumatically. They were placed in a soft collar. They were then awakened by the department of anesthesia having tolerated the procedure well without complications.
--- NOTE | 2023-11-01 13:12 | FL ---
EXAMINATION TYPE: FL guidance operating room, XR cervical spine limited Intraoperative/procedural flu oroscopic services were provided. Total fluoroscopy time is 32.9 seconds with a total of 7 submitted images to PACS. Please see the operative/procedural note for further details. DAP: 0.2893 Gycm2
[2023-11-01] MEDS: HYDROmorphone 0.5 MG/0.5 ML SYRINGE IVP PRN (13:45)
[2023-11-01] MEDS: HYDROcodone/APAP 5-325MG 1 EACH TAB PO STA (15:05)
[2023-11-01 16:41] VITALS: BP 132/78; PULSE 72; RESP 16
== END 2023-11-01 16:47 | disposition home or self-care (01) ==
LOC: OR 09:39
PROVIDERS: ATTEND Orthopaedic Surgery
DX: M50.122 Cervical disc disorder at C5-C6 level with radiculopathy (principal); N20.0 Calculus of kidney; R53.1 Weakness; R29.818 Other symptoms and signs involving the nervous system; Z98.1 Arthrodesis status
CPT/HCPCS: 72040; 20680; C1713; J2250; J0330; J2710; J0690; J2405; J2001; J3010; J2704; J1170; J1596